=== PATIENT | female | born 1990 | race African-American/Black ===

== ENCOUNTER 2017-08-24 12:25 | Emergency (ER) | payer MEDICAID ==
--- NOTE | 2017-08-24 13:17 | PD ---
HPI Chief Complaint vaginal bleeding Date Seen: August 24, 2017 Time Seen: 13:20 Travel History International Travel<30 Days: No Contact w/Intl Traveler<30Days: No Known Affected Area: No History of Present Illness HPI Patient is a 27-year-old female at 39/6 weeks gestation who presented to OB triage with complaints of vaginal bleeding. Patient stated she first noted a small amount of vaginal bleeding this morning on her underwear. She describes the blood as dark. Patient also complains of contractions since this morning. Denies LOF. Endorses movement. Denies any chest pain, shortness of breath, fever, chills nausea, or vomiting. Of note: Patient moved to [place] from [place] in June and has been following with Denisa Ordaz. GBS unknown. Weeks Gestation: 39 Para: 0 : 1 History Past Medical History Medical History: Denies Significant Hx Obstetric History Obstetric History No complications with this thus far Past Surgical History Surgical History: No Previous Surgery Family History Family History: Negative Social History Alcohol Use: No Tobacco Use: No Substance Abuse: No Review of Systems Except as stated in HPI: all other systems reviewed are Neg (per HPI) Physical Exam Narrative GENERAL: Well-nourished, well-developed patient. SKIN: Warm and dry. HEAD: Normocephalic and atraumatic. EYES: No scleral icterus. No injection or drainage. ENT: No nasal drainage noted. Mucous membranes pink. Airway patent. NECK: Supple, trachea midline. No JVD. CARDIOVASCULAR: Regular rate and rhythm without murmurs, gallops, or rubs. RESPIRATORY: Breath sounds equal bilaterally. No accessory muscle use. ABDOMEN/GI: Abdomen soft, non-tender, bowel sounds present, no rebound, no guarding Gravid to 39 weeks size GENITOURINARY: External Genitalia: intact and normal in appearance Cervix: posterior Dilatation: closed and long Effacement: 0 Station: high Membranes: intact Uterine Contractions: irregular Speculm exam: small amount of dried FHT's: Category: 1 Baseline: 140 Reactive: yes Variability:moderate Decels: none EXTREMITIES: No cyanosis or edema. BACK: Nontender without obvious deformity. No CVA tenderness. NEUROLOGICAL: Awake and alert. Motor and sensory grossly within normal limits. Five out of 5 muscle strength in all muscle groups. Normal speech. Data Data Vital Signs Reviewed: Yes [facility] Medical Record Reviewed: Yes Plan Patient is a 27-year-old female at 39/6 weeks gestation who presented to OB triage with complaints of vaginal bleeding. IUP at 39/6 weeks gestation 1. category 1, NST reactive 2. Normal OB u/s, no sign of placenta previa, GREGORY 10.5cm 3. oral hydration 4. cervical exam: closed and thick DW Dr. Singh Diagnosis Diagnosis: Primary Impression: 34 weeks gestation of Additional Impression: Vaginal bleeding Disposition: DISCHARGE HOME Condition: Stable Earl Michel MD, R1 August 24, 2017 13:17
[2017-08-25] MEDS ORDERED: PREN1TAB30 (22:22)
== END 2017-08-24 15:03 | disposition home or self-care (01) ==
LOC: HOBED 12:25
DX: O46.93 Antepartum hemorrhage, unspecified, third trimester (principal); Z3A.39 39 weeks gestation of pregnancy
CPT/HCPCS: 76805; 99284

== ENCOUNTER 2017-08-25 19:26 | Inpatient (IN) | payer MEDICAID ==
[~2017-08-25] VITALS: Ht 152.4 cm; Wt 58.0 kg
--- NOTE | 2017-08-25 20:13 | PD ---
HPI Chief Complaint Contractions Date Seen: Aug 25, 2017 Time Seen: 20:05 Travel History International Travel<30 Days: No Contact w/Intl Traveler<30Days: No Known Affected Area: No History of Present Illness HPI The patient returns for possible labor. She states her contractions have been intermittent throughout the day. She denies leakage of fluid or bleeding. Weeks Gestation: 40 Para: 0 : 1 History Past Medical History Medical History: Denies Significant Hx Obstetric History Obstetric History Patient reports having care in [place] prior to moving to [place] in June. She has been with Denisa Ordaz. Unknown GBS status Past Surgical History Surgical History: No Previous Surgery Family History Family History: Negative Social History Alcohol Use: No Tobacco Use: No Substance Abuse: No Review of Systems Except as stated in HPI: all other systems reviewed are Neg Physical Exam Narrative GENERAL: Well-nourished, well-developed patient. SKIN: Warm and dry. HEAD: Normocephalic and atraumatic. EYES: No scleral icterus. No injection or drainage. ENT: No nasal drainage noted. Mucous membranes pink. Airway patent. NECK: Supple, trachea midline. No JVD. CARDIOVASCULAR: Regular rate and rhythm without murmurs, gallops, or rubs. RESPIRATORY: Breath sounds equal bilaterally. No accessory muscle use. ABDOMEN/GI: Abdomen soft, non-tender, bowel sounds present, no rebound, no guarding Gravid to [-] weeks size Fundal Height: [-] GENITOURINARY: External Genitalia: intact and normal in appearance BUS glands: [-] Cervix: [-] Dilatation: [1-] Effacement: [-50] Station: [--2] Presentation: [vtx-] Membranes: [intact] Uterine Contractions: [mild irreg-] FHT's: Category: [-] Baseline: [-] Reactive: [yes-] Variability: [-] Decels: [-] EXTREMITIES: No cyanosis or edema. BACK: Nontender without obvious deformity. No CVA tenderness. NEUROLOGICAL: Awake and alert. Motor and sensory grossly within normal limits. Five out of 5 muscle strength in all muscle groups. Normal speech. MDM Medical Record Reviewed: Yes Narrative Course / MDM Assessment: Primigravida at 40 weeks gestation not in labor Plan: Rapid GBS was obtained. If undelivered follow-up Monday for biophysical profile. Diagnosis Diagnosis: Primary Impression: 40 weeks gestation of Additional Impression: Irregular uterine contractions Disposition: 01 DISCHARGE HOME Condition: Good Armando Corona MD Aug 25, 2017 20:13
[2017-08-25] MEDS ORDERED: LACTATED RINGER'S 1000 ML INJ 1,000 ML IV PRN (20:45)
[2017-08-25] MEDS ORDERED: LIDOCAINE HCL 1% 50 ML VIAL I-DERMAL PRN (20:45)
[2017-08-25] MEDS ORDERED: MINERAL OIL 10 ML VIAL TOPICAL PRN (20:45)
[2017-08-25] MEDS ORDERED: LIDOCAINE HCL 1% 50 ML VIAL INFIL PRN (20:45)
[2017-08-25] MEDS ORDERED: OXYTOCIN 30 UNITS-500ML PREMIX 500 ML IV ONE (20:45)
[2017-08-25] MEDS ORDERED: SODIUM CHLORID 0.9% 500 ML INJ 500 ML IV PRN (20:45)
--- NOTE | 2017-08-25 20:55 | HHI.HP ---
HPI Chief Complaint Increasing contractions Date Seen: Aug 25, 2017 Time Seen: 20:51 Travel History International Travel<30 Days: No Contact w/Intl Traveler<30Days: No Known Affected Area: No History of Present Illness HPI The patient returns for possible labor. She states her contractions have been intermittent throughout the day. She denies leakage of fluid or bleeding. History Past Medical History Medical History: Denies Significant Hx Past Surgical History Surgical History: No Previous Surgery Family History Family History: Negative Social History Alcohol Use: No Tobacco Use: No Substance Abuse: No Allergies-Medications (Allergen,Severity, Reaction): Coded Allergies: No Known Allergies (Verified Allergy, Unknown, 08/25/17) Review of Systems Except as stated in HPI: all other systems reviewed are Neg Physical Exam Narrative GENERAL: Well-nourished, well-developed patient. SKIN: Warm and dry. HEAD: Normocephalic and atraumatic. EYES: No scleral icterus. No injection or drainage. ENT: No nasal drainage noted. Mucous membranes pink. Airway patent. NECK: Supple, trachea midline. No JVD. CARDIOVASCULAR: Regular rate and rhythm without murmurs, gallops, or rubs. RESPIRATORY: Breath sounds equal bilaterally. No accessory muscle use. ABDOMEN/GI: Abdomen soft, non-tender, bowel sounds present, no rebound, no guarding Gravid to [-] weeks size Fundal Height: [-] GENITOURINARY: External Genitalia: intact and normal in appearance BUS glands: [Negative-] Cervix: [-] Dilatation: [2-3-] Effacement: [90-] Station: [--2] Presentation: [-Vertex] Membranes: [intact] Uterine Contractions: [-Every 2-5] FHT's: Category: [-] Baseline: [-] Reactive: [Yes-] Variability: [-] Decels: [-] EXTREMITIES: No cyanosis or edema. BACK: Nontender without obvious deformity. No CVA tenderness. NEUROLOGICAL: Awake and alert. Motor and sensory grossly within normal limits. Five out of 5 muscle strength in all muscle groups. Normal speech. Caprini VTE Risk Assessment Caprini VTE Risk Assessment: No/Low Risk (score <= 1) Caprini Risk Assessment Model Point Value = 1 Point Value = 2 Point Value = 3 Point Value = 5 Age 41-60 Minor surgery BMI > 25 kg/m2 Swollen legs Varicose veins or History of unexplained or recurrent spontaneous Oral contraceptives or hormone replacement Sepsis (< 1 month) Serious lung disease, including pneumonia (< 1 month) Abnormal pulmonary function Acute myocardial infarction Congestive heart failure (< 1 month) History of inflammatory bowel disease Medical patient at bed rest Age 61-74 Arthroscopic surgery Major open surgery (> 45 min) Laparoscopic surgery (> 45 min) Malignancy Confined to bed (> 72 hours) Immobilizing plaster cast Central venous access Age >= 75 History of VTE Family history of VTE Factor V Leiden Prothrombin [id number] Lupus anticoagulant Anticardiolipin antibodies Elevated serum homocysteine Heparin-induced thrombocytopenia Other congenital or acquired thrombophilia Stroke (< 1 month) Elective arthroplasty Hip, pelvis, or leg fracture Acute spinal cord injury (< 1 month) Prophylaxis Regimen Total Risk Factor Score Risk Level Prophylaxis Regimen 0-1 Low Early ambulation 2 Moderate Order ONE of the following: *Sequential Compression Device (SCD) *Heparin 5000 units SQ BID 3-4 Higher Order ONE of the following medications: *Heparin 5000 units SQ TID *Enoxaparin/Lovenox 40 mg SQ daily (WT < 150 kg, CrCl > 30 mL/min) *Enoxaparin/Lovenox 30 mg SQ daily (WT < 150 kg, CrCl > 10-29 mL/min) *Enoxaparin/Lovenox 30 mg SQ BID (WT < 150 kg, CrCl > 30 mL/min) AND/OR *Sequential Compression Device (SCD) 5 or more Highest Order ONE of the following medications: *Heparin 5000 units SQ TID (Preferred with Epidurals) *Enoxaparin/Lovenox 40 mg SQ daily (WT < 150 kg, CrCl > 30 mL/min) *Enoxaparin/Lovenox 30 mg SQ daily (WT < 150 kg, CrCl > 10-29 mL/min) *Enoxaparin/Lovenox 30 mg SQ BID (WT < 150 kg, CrCl > 30 mL/min) AND *Sequential Compression Device (SCD) Data Data Orders Orders Group B Strep Pcr (Rapid) (08/25/17 20:14) Ob (2e) Additional Admit Info (08/25/17 20:47) Admit To Inpatient (08/25/17 ) Code Status (08/25/17 20:45) Vital Signs (Adult) .Per protocol (08/25/17 20:45) Heart (08/25/17 20:45) Amnioinfusion (08/25/17 20:45) Urinary Catheter Management .ONCE (08/25/17 20:45) Diet Liquid (08/26/17 Breakfast) Lactated Ringer's 1000 Ml Inj (Lr 1000 M (08/25/17 20:45) Lactated Ringer's 1000 Ml Inj (Lr 1000 M (08/25/17 20:45) Sodium Chlorid 0.9% 500 Ml Inj (Ns 500 M (08/25/17 20:45) Sodium Chlor 0.9% 1000 Ml Inj (Ns 1000 M (08/25/17 21:05) Lidocaine 1% Inj (50 Ml) (Xylocaine 1% I (08/25/17 20:45) Fentanyl Inj (Fentanyl Inj) (08/25/17 20:45) Fentanyl Inj (Fentanyl Inj) (08/25/17 20:45) Complete Blood Count With Diff (08/25/17 20:45) Hold Clot (08/25/17 20:45) Abo/Rh Blood Type (08/25/17 20:45) Drug Screen, Random Urine (08/25/17 20:45) Resp Oxygen Non Rebreathe Mask (08/25/17 ) ^ Epidural / Intrathecal Infus (08/25/17 20:45) Oxytocin 30 Units-500ml Premix (Pitocin (08/25/17 20:45) Lidocaine 1% Inj (50 Ml) (Xylocaine 1% I (08/25/17 20:45) Light Mineral Oil (Muri-Lube Oil) (08/25/17 20:45) Inpatient Certification (08/25/17 ) Assessment/Plan Assessment and Plan Assessment: Primigravida at 39+ weeks gestation admitted for labor management Plan: Rapid GBS is pending Admission labs Armando Corona MD Aug 25, 2017 20:55
[2017-08-25] MEDS ORDERED: SODIUM CHLOR 0.9% 1000 ML INJ 1,000 ML IV PRN (21:05)
[2017-08-25 21:30] LABS: BASOPHIL % 0.4 % (0.0-2.0); EOSINOPHIL # 0.1 TH/MM3 (0-0.4); EOSINOPHIL % 0.7 % (0.0-4.0); HEMATOCRIT 35.2 % (35.0-46.0); HEMOGLOBIN 10.8 GM/DL (11.6-15.3); LYMPH % 17.3 % (9.0-44.0); LYMPHOCYTE # 1.6 TH/MM3 (1.0-4.8); MEAN CELL VOLUME 63.3 FL (80.0-100.0); MEAN CORPUSCULAR HEMOGLOBIN 19.4 PG (27.0-34.0); MEAN CORPUSCULAR HGB CONC 30.6 % (32.0-36.0); MEAN PLATELET VOLUME 9.8 FL (7.0-11.0); MONO % 7.7 % (0.0-8.0); MONOCYTE # 0.7 TH/MM3 (0-0.9); NEUT % 73.9 % (16.0-70.0); PLATELET COUNT 171 TH/MM3 (150-450); RED BLOOD COUNT 5.56 MIL/MM3 (4.00-5.30); RED CELL DISTRIBUTION WIDTH 22.6 % (11.6-17.2); WHITE BLOOD COUNT 9.5 TH/MM3 (4.0-11.0)
[2017-08-25] MEDS ORDERED: PREN1TAB30 (22:22)
[2017-08-25] MEDS: LACTATED RINGER'S 1000 ML INJ 1,000 ML IV SCH (22:28)
[2017-08-25 22:40] LABS: KERATOCYTES OCC (NORMAL); OVALOCYTES 1+ (NORMAL)
[2017-08-25 22:41] LABS: TEARDROP RBCS 1+ (NORMAL)
[2017-08-26] MEDS ORDERED: OXYTOCIN 30 UNITS-500ML PREMIX 500 ML IV PRN
[2017-08-26] MEDS ORDERED: fentaNYL 2MCG-BUPIV 0.125% INJ 150 ML EPIDURAL ONE (02:31)
[2017-08-26] MEDS ORDERED: LIDOCAINE 1.5%/EPINEPHrine 1:200,000 PF 5 ML AMP ONE (02:38)
[2017-08-26] MEDS: LACTATED RINGER'S 1000 ML INJ 1,000 ML IV SCH ×2 (02:44→05:57)
[2017-08-26] MEDS ORDERED: fentaNYL 2MCG-BUPIV 0.125% 150 ML EPIDURAL PRN (04:00)
[2017-08-26] MEDS ORDERED: NO SYSTEM NARCOTICS PRN (04:00)
[2017-08-26] MEDS ORDERED: ePHEDrine/NS 25 MG/5 ML SYRINGE IV PUSH PRN (04:00)
[2017-08-26] MEDS ORDERED: DO NOT ADMINISTER ANTICOAGULANTS PRN (04:00)
--- NOTE | 2017-08-26 08:43 | PD.LABORPN ---
Subjective Subjective The patient is comfortable with her epidural. Objective Vital Signs Vital Signs Date Time Temp Pulse Resp B/P (MAP) Pulse Ox O2 Delivery O2 Flow Rate FiO2 08/26/17 03:40 14 08/26/17 03:10 18 Objective Pelvic Exam: Cervix: [-] Dilatation: [9-] Effacement: [-100] Station: [0-] Presentation: [Vertex-] Membranes: [ruptured with clear fluid] Uterine Contractions: [Every 2-3-] FHT's: Category: [-1] Baseline: [-] Reactive: [-] Variability: [-] Decels: [-] Weeks Gestation: 40 Gest Age Assessed Date: Aug 26, 2017 Gest Age Assessed Time: 08:42 Pt started active labor?: Yes Active labor start date: Aug 26, 2017 Active labor start time: 07:00 Medical induction of labor?: No Artificial rupture of membrane: Yes Artificial ROM date: Aug 26, 2017 Artifical ROM time: 08:30 Assessment/Plan Assessment and Plan Assessment: Primigravida in active labor with adequate progress Plan: Expect vaginal delivery Armando Corona MD Aug 26, 2017 08:43
[2017-08-26] MEDS ORDERED: LIDOCAINE HCL 1% PF 5 ML AMPULE ONE (11:48)
--- NOTE | 2017-08-26 12:24 | PD.OB.DELI ---
Weeks gestation: 40 Gest age assessed date: Aug 26, 2017 Gest age assessed time: 08:42 Pt started active labor?: Yes Active labor start date: Aug 26, 2017 Active labor start time: 07:00 Medical induction of labor?: No Artificial rupture of membrane: Yes Artificial ROM date: Aug 26, 2017 Artifical ROM time: 08:30 Anesthesia: Epidural Episiotomy: Midline Vaginal Delivery: Normal, Spontaneous Presentation: Occiput anterior Nuchal Cord: x1 Delayed cord clamping (45 sec): Yes Infant: Female Delivery date: Aug 26, 2017 Delivery time: 11:58 One Minute : 4 Five Minute : 7 Ten Minute : 9 Weight: pending Placenta: Spontaneous delivery, Intact, 3 vessel cord Laceration: Episiotomy, 2 deg Repair: Vicryl running Estimated blood loss: 400cc Additional Information delivery w/o diff. fht reassuring w/ early decels w/ pushing. pitocin to 14 miu/min. Sergio Singh Jr., MD Aug 26, 2017 12:24
[2017-08-26] MEDS ORDERED: BENZOCAINE 20% TOPICAL SPRAY 60 ML CAN TOPICAL PRN (12:30)
[2017-08-26] MEDS ORDERED: ONDANSETRON ODT 4 MG TAB PO PRN (12:30)
[2017-08-26] MEDS ORDERED: SODIUM CHLORIDE 0.9% FLUSH 10 ML FLUSH IV FLUSH PRN (12:30)
[2017-08-26] MEDS ORDERED: oxyCODONE/ACETAMINOPHEN 5 MG/325 MG TAB PO PRN ×2 (12:30)
[2017-08-26] MEDS ORDERED: ALUMINUM/MAGNESIUM/SIMETH 30 ML CUP PO PRN (12:30)
[2017-08-26] MEDS ORDERED: DOCUSATE SODIUM 50 MG/SENNA 8.6 MG TAB PO PRN (12:30)
[2017-08-26] MEDS ORDERED: OXYTOCIN 30 UNITS-500ML PREMIX 500 ML IV SCH (13:00)
[2017-08-26] MEDS ORDERED: DIPHTH/TETANUS/ACEL PERTUSSIS (BOOSTER) 0.5 ML VIAL/PFS IM ONE (16:00)
[2017-08-26] MEDS ORDERED: MEASLES, MUMPS, RUBELLA VACCINE 0.5 ML VIAL SQ ONE (16:00)
[2017-08-26] MEDS: IBUPROFEN 800 MG TAB PO PRN (17:22)
[2017-08-26] MEDS: WITCH HAZEL 50%/GLYCERIN 12.5% 40 PAD JAR TOPICAL PRN (17:23)
[2017-08-26] MEDS ORDERED: SODIUM CHLORIDE 0.9% FLUSH 10 ML FLUSH IV FLUSH SCH (21:00)
[2017-08-26] MEDS ORDERED: ZOLPIDEM TARTRATE 5 MG TAB PO PRN (21:00)
[2017-08-27] MEDS: IBUPROFEN 800 MG TAB PO PRN ×2 (01:48→15:29)
[2017-08-27] MEDS: ACETAMINOPHEN 325 MG TAB PO PRN ×2 (06:14→20:19)
[2017-08-27 08:00] VITALS: BP 104/71; PULSE 72; RESP 18; TEMP 98.7; O2SAT 100
--- NOTE | 2017-08-27 10:25 | HHI.OB ---
Subjective Post Day: 1 Remarks day #1. AFVSS overnight. Pain well-controlled. Decreased lochia. Denies dysuria. No breast tenderness. Appetite good. No nausea or vomiting. Endorses flatus. No bowel movement. Ambulating well. Denies calf pain, shortness of breath, or cough. Otherwise, she is doing well this morning and has no other complaints. Objective Vitals/I&O Vital Signs Date Time Temp Pulse Resp B/P (MAP) Pulse Ox O2 Delivery O2 Flow Rate FiO2 08/27/17 08:00 98.7 72 18 104/71 (82) 100 Objective Remarks GENERAL: Well-nourished, well-developed patient. CARDIOVASCULAR: Regular rate and rhythm without murmurs, gallops, or rubs. RESPIRATORY: Breath sounds equal bilaterally. No accessory muscle use. ABDOMEN/GI: Abdomen soft, non-tender. Fundus: Firm, non-tender at umbilicus. GENITOURINARY: Light to moderate bleeding. EXTREMITIES: No cyanosis or edema, non-tender, without signs of DVT. Medications and IVs Current Medications Medications (Trade) Dose Ordered Sig/Sameer Route Start Time Stop Time Status Last Admin Lactated Ringer's 1,000 ml @ 125 mls/hr Q8H IV 08/25/17 20:45 08/26/17 05:57 Lactated Ringer's 1,000 ml @ 3,000 mls/hr Q20M PRN IV 08/25/17 20:45 Sodium Chloride 500 ml @ 1,000 mls/hr ONCE PRN IV 08/25/17 20:45 Sodium Chloride 1,000 ml @ 100 mls/hr Q10H PRN IV 08/25/17 21:05 (Xylocaine 1% Inj (50 ml)) 0.1 ml UNSCH X1 PRN I-DERMAL 08/25/17 20:45 08/28/17 20:44 (fentaNYL INJ) 50 mcg Q1H PRN IV PUSH 08/25/17 20:45 (fentaNYL INJ) 100 mcg Q1H PRN IV PUSH 08/25/17 20:45 08/26/17 00:42 (Xylocaine 1% Inj (50 ml)) 10 ml UNSCH X1 PRN INFIL 08/25/17 20:45 08/27/17 20:44 (Muri-Lube Oil) 10 ml UNSCH PRN TOPICAL 08/25/17 20:45 Oxytocin 500 ml @ 0 mls/hr TITRATE PRN IV 08/26/17 00:00 08/26/17 00:09 Fentanyl/ Bupivacaine/ Sodium Chlor 150 ml @ 0 mls/hr TITRATE PRN EPIDURAL 08/26/17 04:00 08/26/17 03:10 (NS Flush) 2 ml BID IV FLUSH 08/26/17 21:00 (NS Flush) 2 ml UNSCH PRN IV FLUSH 08/26/17 12:30 (Tylenol) 650 mg Q4H PRN PO 08/26/17 12:30 08/27/17 06:14 (Motrin) 800 mg Q8H PRN PO 08/26/17 12:30 08/27/17 01:48 (Percocet 5-325 Mg) 1 tab Q4H PRN PO 08/26/17 12:30 (Percocet 5-325 Mg) 2 tab Q4H PRN PO 08/26/17 12:30 (Americaine 20% Top Spr) 1 spray Q4H PRN TOPICAL 08/26/17 12:30 08/26/17 17:23 (Tucks Pads) 1 applic QID PRN TOPICAL 08/26/17 12:30 08/26/17 17:23 (Darshana-Colace) 2 tab Q12H PRN PO 08/26/17 12:30 (Ambien) 5 mg HS PRN PO 08/26/17 21:00 (Mag-Al Plus Susp Liq) 15 ml Q8H PRN PO 08/26/17 12:30 (Zofran Odt) 4 mg Q6H PRN PO 08/26/17 12:30 Assessment/Plan Assessment and Plan 27y/o who is PPD#1 s/p . -Continue routine care. -Percocet and Motrin PRN pain. -Encouraged OOB. Advised pelvic rest for 6 wks. -Will need a f/u appt. within 6 wks. -Re: ctrl, she is undecided -D/c in 1-2 more days. dw OB attending Andre Ridley MD R2 Aug 27, 2017 10:25
--- NOTE | 2017-08-28 08:22 | HHI.OB ---
Subjective Post Day: 2 Remarks day #2. AFVSS overnight. Pain well-controlled. Decreased lochia. Denies dysuria. No breast tenderness. Appetite good. No nausea or vomiting. Endorses flatus. No bowel movement. Ambulating well. Denies calf pain, shortness of breath, or cough. Otherwise, she is doing well this morning and has no other complaints. (Eko,Fanny FERRARO R2) Remarks Patient seen and evaluated with resident under direct supervision, agree with assessment and plan. (Armando Corona MD) Objective Objective Remarks GENERAL: Well-nourished, well-developed patient. CARDIOVASCULAR: Regular rate and rhythm without murmurs, gallops, or rubs. RESPIRATORY: Breath sounds equal bilaterally. No accessory muscle use. ABDOMEN/GI: Abdomen soft, non-tender. Fundus: Firm, non-tender at umbilicus. GENITOURINARY: Light to moderate bleeding. EXTREMITIES: No cyanosis or edema, non-tender, without signs of DVT. Medications and IVs Current Medications Medications (Trade) Dose Ordered Sig/Sameer Route Start Time Stop Time Status Last Admin Lactated Ringer's 1,000 ml @ 125 mls/hr Q8H IV 08/25/17 20:45 08/26/17 05:57 Lactated Ringer's 1,000 ml @ 3,000 mls/hr Q20M PRN IV 08/25/17 20:45 Sodium Chloride 500 ml @ 1,000 mls/hr ONCE PRN IV 08/25/17 20:45 Sodium Chloride 1,000 ml @ 100 mls/hr Q10H PRN IV 08/25/17 21:05 (Xylocaine 1% Inj (50 ml)) 0.1 ml UNSCH X1 PRN I-DERMAL 08/25/17 20:45 08/28/17 20:44 (fentaNYL INJ) 50 mcg Q1H PRN IV PUSH 08/25/17 20:45 (fentaNYL INJ) 100 mcg Q1H PRN IV PUSH 08/25/17 20:45 08/26/17 00:42 (Muri-Lube Oil) 10 ml UNSCH PRN TOPICAL 08/25/17 20:45 Oxytocin 500 ml @ 0 mls/hr TITRATE PRN IV 08/26/17 00:00 08/26/17 00:09 Fentanyl/ Bupivacaine/ Sodium Chlor 150 ml @ 0 mls/hr TITRATE PRN EPIDURAL 08/26/17 04:00 08/26/17 03:10 (NS Flush) 2 ml BID IV FLUSH 08/26/17 21:00 (NS Flush) 2 ml UNSCH PRN IV FLUSH 08/26/17 12:30 (Tylenol) 650 mg Q4H PRN PO 08/26/17 12:30 08/27/17 20:19 (Motrin) 800 mg Q8H PRN PO 08/26/17 12:30 08/27/17 15:29 (Percocet 5-325 Mg) 1 tab Q4H PRN PO 08/26/17 12:30 (Percocet 5-325 Mg) 2 tab Q4H PRN PO 08/26/17 12:30 (Americaine 20% Top Spr) 1 spray Q4H PRN TOPICAL 08/26/17 12:30 08/26/17 17:23 (Tucks Pads) 1 applic QID PRN TOPICAL 08/26/17 12:30 08/26/17 17:23 (Darshana-Colace) 2 tab Q12H PRN PO 08/26/17 12:30 08/27/17 20:19 (Ambien) 5 mg HS PRN PO 08/26/17 21:00 (Mag-Al Plus Susp Liq) 15 ml Q8H PRN PO 08/26/17 12:30 08/28/17 03:46 (Zofran Odt) 4 mg Q6H PRN PO 08/26/17 12:30 (Fanny Lucio MD R2) Assessment/Plan Assessment and Plan 27y/o who is PPD#2 s/p . -Continue routine care. -Percocet and Motrin PRN pain. -Encouraged OOB. Advised pelvic rest for 6 wks. -Will need a f/u appt. within 6 wks. -Re: ctrl, she is undecided -D/c home today dw OB attending (Fanny Lucio MD R2) Fanny Lucio MD R2 Aug 28, 2017 08:22 Armando Corona MD Aug 28, 2017 09:50
[2017-08-28] MEDS ORDERED: IBUP1TAB7 PO (09:42)
[2017-08-28] MEDS ORDERED: PERI PO (09:42)
--- NOTE | 2017-08-28 09:43 | HHI.DCPOC ---
Discharge Care Plan Diagnosis: (1) 40 weeks gestation of Report Symptoms to Your Doctor -Temperature above 100.5 degrees -Redness, of incision or excessive or foul smelling drainage -Unusual pain or calf pain -Increased vaginal bleeding -Painful or difficulty urinating -Feelings of extreme sadness or anxiety after 2 weeks Goals to Promote Your Health * To prevent worsening of your condition and complications * To maintain your health at the optimal level Directions to Meet Your Goals Take your medications as prescribed Follow your dietary instruction Follow activity as directed Ensure plenty of rest for recovery Drink fluids for hydration Keep your appointments as scheduled Take your immunizations and boosters as scheduled If your symptoms worsen call your PCP, if no PCP go to Urgent Care Center or Emergency Room Smoking is Dangerous to Your Health. Avoid second hand smoke Call the 24-hour crisis hotline for domestic abuse at Fanny Lucio MD R2 Aug 28, 2017 09:43
[2017-08-28] MEDS: WITCH HAZEL 50%/GLYCERIN 12.5% 40 PAD JAR TOPICAL PRN (11:37)
[2017-08-28] MEDS: IBUPROFEN 800 MG TAB PO PRN (11:37)
== END 2017-08-28 15:07 | disposition home or self-care (01) | DRG 775 ==
LOC: HOBED 19:26 → H2EB 20:50 → H1EA 08-26 14:27
PROVIDERS: ADMIT Obstetrics & Gynecology; ATTEND Obstetrics & Gynecology
PROC: 10E0XZZ Delivery of Products of Conception, External Approach (ICD-10-PCS; principal; 2017-08-26)
PROC: 00HU33Z Insertion of Infusion Device into Spinal Canal, Percutaneous Approach (ICD-10-PCS; 2017-08-26)
PROC: 3E0R3BZ Introduction of Anesthetic Agent into Spinal Canal, Percutaneous Approach (ICD-10-PCS; 2017-08-26)
PROC: 10907ZC Drainage of Amniotic Fluid, Therapeutic from Products of Conception, Via Natural or Artificial Opening (ICD-10-PCS; 2017-08-26)
PROC: 10E0XZZ Delivery of Products of Conception, External Approach (ICD-10-PCS; 2017-08-26)
PROC: 0W8NXZZ Division of Female Perineum, External Approach (ICD-10-PCS; 2017-08-26)
DX: O69.81X0 Labor and delivery complicated by cord around neck, without compression, not applicable or unspecified (principal); Z23 Encounter for immunization; Z37.0 Single live birth; Z3A.40 40 weeks gestation of pregnancy
CPT/HCPCS: 59025; 80307; 85025; 86900; 86901; 87081; 87150; 90715; J2590; J3010; J7120